=== PATIENT | female | born 1955 | race Caucasian/White ===

== ENCOUNTER 2019-02-05 23:38 | Inpatient (IN) | payer OTHER ==
[~2019-02-05] VITALS: Ht 157.5 cm; Wt 59.0 kg
[2019-02-10] MEDS ORDERED: PERCOCET 5-3251 EACH PO (11:09)
[2019-02-10] MEDS ORDERED: GAS-X125 M1 PO (11:32)
[2019-02-10] MEDS ORDERED: INTEGRA F CAPS1 EACH PO (11:32)
[2019-02-10] MEDS ORDERED: ULTRACET PO (11:32)
== END 2019-02-10 12:55 | disposition home or self-care (01) | DRG 392 ==
LOC: ER 23:38 → SURG 02-06 19:52
PROVIDERS: ADMIT Colon & Rectal Surgery
DX: R10.84 Generalized abdominal pain (principal); D62 Acute posthemorrhagic anemia; C19 Malignant neoplasm of rectosigmoid junction; R50.9 Fever, unspecified; E86.0 Dehydration; Z93.2 Ileostomy status; Z88.0 Allergy status to penicillin

== ENCOUNTER 2019-12-19 10:04 | Outpatient (CLI) | payer OTHER ==
[~2019-12-19 10:04] MED LIST: GAS-X125 M1 PO; INTEGRA F CAPS1 EACH PO; PERCOCET 5-3251 EACH PO; ULTRACET PO
== END 2019-12-19 11:00 | disposition home or self-care (01) ==
LOC: RX STUDY 10:04
DX: C20 Malignant neoplasm of rectum (principal)

== ENCOUNTER 2020-01-08 08:36 | Day surgery (SDC) | payer OTHER | END 2020-01-08 16:15 | disposition home or self-care (01) | LOC: CIR.AMB 08:36 | DX: K62.4 Stenosis of anus and rectum (principal) ==

== ENCOUNTER 2020-05-07 11:45 | Inpatient (IN) | payer OTHER ==
[~2020-05-07] VITALS: Ht 157.5 cm; Wt 68.5 kg
[2020-05-08] MEDS ORDERED: PROBIOTIC1 EAC2 PO (14:09)
[2020-05-08] MEDS ORDERED: VITAMIN D-40010 MCG PO (14:10)
== END 2020-05-15 22:37 | disposition home or self-care (01) | DRG 330 ==
LOC: ADM 11:45 → EDSTATUS 05-08 10:30 → O/R 05-13 07:40 → SURH 05-13 07:40 → SURG 05-14 17:48
PROVIDERS: ADMIT Colon & Rectal Surgery; ATTEND Colon & Rectal Surgery
PROC: 3E0F7GC Introduction of Other Therapeutic Substance into Respiratory Tract, Via Natural or Artificial Opening (ICD-10-PCS; 2020-05-13)
PROC: 0DSB4ZZ Reposition Ileum, Percutaneous Endoscopic Approach (ICD-10-PCS; principal; 2020-05-13 07:45)
PROC: 4A12X4Z Monitoring of Cardiac Electrical Activity, External Approach (ICD-10-PCS; 2020-05-14)
DX: Z43.2 Encounter for attention to ileostomy (principal); C20 Malignant neoplasm of rectum; G47.33 Obstructive sleep apnea (adult) (pediatric)